=== PATIENT | female | born 2000 | race African-American/Black ===

== ENCOUNTER 2023-12-21 09:21 | Emergency (ER) | payer MEDICAID ==
[~2023-12-21] VITALS: Ht 162.6 cm; Wt 60.0 kg
[2023-12-21 09:37] VITALS: O2SAT 98
[2023-12-21 09:39] VITALS: BP 115/68; PULSE 96; RESP 16; TEMP 98.5; O2SAT 97
[2023-12-21] MEDS ORDERED: D-ME473S50 PO (10:57)
== END 2023-12-21 11:02 | disposition home or self-care (01) ==
LOC: ER 09:21
DX: J20.9 Acute bronchitis, unspecified (principal); F12.10 Cannabis abuse, uncomplicated
CPT/HCPCS: 71045; 99283

== ENCOUNTER 2024-07-30 15:05 | Emergency (ER) | payer MEDICAID ==
[~2024-07-30] VITALS: Ht 167.6 cm; Wt 55.0 kg
[~2024-07-30 15:05] MED LIST: D-ME473S50 PO
[2024-07-30 15:13] VITALS: TEMP 36.8; O2SAT 98
[2024-07-30] MEDS ORDERED: HYDR453.3 TP (16:28)
[2024-07-30] MEDS ORDERED: DIPH103G TP (16:28)
[2024-07-30 16:49] VITALS: BP 121/77; PULSE 90; RESP 18; O2SAT 100
== END 2024-07-30 16:50 | disposition home or self-care (01) ==
LOC: ER 15:05
DX: L29.9 Pruritus, unspecified (principal); F12.90 Cannabis use, unspecified, uncomplicated; Z79.899 Other long term (current) drug therapy
CPT/HCPCS: 99282